=== PATIENT | female | born 2000 | race Caucasian/White ===

== ENCOUNTER 2022-04-09 09:54 | Emergency (ER) | payer OTHER ==
[~2022-04-09] VITALS: Ht 160 cm; Wt 63.5 kg
[2022-04-09 09:59] VITALS: BP 115/72
--- NOTE | 2022-04-09 10:23 | ED Integumentary General ---
General Chief Complaint: Bite-Animal/Human/Insect Stated Complaint: SPIDER BITES Nursing Triage Note: Patient reports she woke with 2 bites on her left knee/lower leg at 2 am on April 08. She reports she has tried benadryl and topical creams without relief. She states she is now having pain in the back of her knee as well as at the bite locations. Source: patient Exam Limitations: no limitations History of Present Illness Date Seen by Provider: Apr 09, 2022 Time Seen by Provider: 10:05 Initial Comments Patient is a 22-year-old female who presents with spider bite on her left knee which occurred with 1 day ago. She has 2 circular regions with a central puncture wound on her left anterior proximal leg that she states are painful and itches. She applied Benadryl cream and ice pack with limited recruitment. No other symptoms or complaints. Timing/Duration: just prior to arrival Severity: mild Possible Cause: other Modifying Factors: improves with other Associated Symptoms: other Allergies and Home Medications Allergies Coded Allergies: No Known Drug Allergies (Unverified , 04/09/22) Patient Home Medication List Home Medication List Reviewed: Yes Review of Systems Review of Systems Constitutional: see HPI Skin: see HPI Physical Exam Vital Signs Vital Signs - First Documented 04/09/22 09:59 Temp 36.2 Pulse 82 Resp 18 B/P (MAP) 115/72 (86) Pulse Ox 97 O2 Delivery Room Air Capillary Refill : Less Than 3 Seconds General Appearance: WD/WN, no apparent distress Neurologic/Psychiatric: alert, oriented x 3 Skin: rash (#2, 2 cm annular rash patches on left anterior knee with central puncture wound. No induration weeping streaking or skin breakdown.) Progress/Results/Core Measures Results/Orders Vital Signs/I&O 04/09/22 09:59 Temp 36.2 Pulse 82 Resp 18 B/P (MAP) 115/72 (86) Pulse Ox 97 O2 Delivery Room Air Blood Pressure Mean: 86 Departure Communication (Admissions) Will place on topical antibiotics. Recommendations are watchful waiting, supportive care and PCP follow-up Impression Primary Impression: Insect bites Disposition: 01 HOME, SELF-CARE Condition: Stable Departure-Patient Inst. Decision time for Depature: 10:24 Patient Instructions: Insect Bites and Stings Add. Discharge Instructions: Please take ibuprofen for pain, Benadryl fort itching and apply topical antibiotic. Follow-up with your local PCP as needed. All discharge instructions reviewed with patient and/or family. Voiced understanding. Scripts Mupirocin (Mupirocin) 2 % Oint...g. 22 GM TP BID, #3 EA Prov: JEANNETTE ZENG DO 04/09/22 JEANNETTE ZENG DO Apr 09, 2022 10:23
[2022-04-09] MEDS ORDERED: MUPI22OI2 TP (10:26)
== END 2022-04-09 10:29 | disposition home or self-care (01) ==
LOC: ER FS 09:57
DX: S80.262A Insect bite (nonvenomous), left knee, initial encounter (principal); Z28.310 Unvaccinated for COVID-19; W57.XXXA Bitten or stung by nonvenomous insect and other nonvenomous arthropods, initial encounter
CPT/HCPCS: 99283